=== PATIENT | male | born 1950 | race Caucasian/White ===

== ENCOUNTER 2020-06-19 22:23 | Inpatient (IN) | payer MEDICARE, BC ==
[2020-06-19] MEDS ORDERED: Albuterol Sulfate 2.5 mg/3 ml Neb ONE (22:45)
[2020-06-19] MEDS ORDERED: Cefepime 2 GM VIAL ONE (22:59)
[2020-06-19 23:10] LABS: #Basophils 0.1 10x3/uL (0.0-0.2); #Eosinphils 0.9 10x3/uL (0.0-0.5); #Monocytes 0.8 10x3/uL (0.0-1.1); %Basophils 0.6 % (0.0-2.0); %Eosinophils 11.1 % (0.0-6.0); %Lymphocytes 28.9 % (18.0-47.0); %Monocytes 9.6 % (0.0-10.0); %Neutrophils 49.4 % (40.0-75.0); Hemoglobin 14.4 g/dL (13.5-17.5); Mean Corpuscular HGB CONC 32.5 g/dL (32.0-36.0); Mean Corpuscular Hemoglobin 32.3 pg (27.0-33.0); Mean Corpuscular Volume 99.3 fl (81.2-95.1); Mean Platelet Volume 11.3 fl (7.4-10.4); Platelet Count 186 10x3/uL (150-450); RBC Distribution Width 13.3 % (11.5-14.5); Red Blood Cell (RBC) Count 4.46 10x6/uL (4.32-5.72); White Blood Cell (WBC) Count 8.1 10x3/uL (3.5-10.5)
[2020-06-19 23:26] LABS: ALT (SGPT) 21 U/L (8-55); AST (SGOT) 21 U/L (5-34); Albumin 3.7 g/dL (3.4-4.8); Alkaline Phosphatase 68 U/L (40-110); Anion Gap 14 mmol/L (10-20); BUN (Urea Nitrogen) 15 mg/dL (8.4-25.7); Bilirubin, Total 0.3 mg/dL (0.2-1.2); Calc. Creatinine Clearance 0 mL/min (70-130); Calcium 8.8 mg/dL (7.8-10.44); Carbon Dioxide 24 mmol/L (23-31); Chloride 106 mmol/L (98-107); Globulin 3.1 g/dL (2.4-3.5); Glucose 119 mg/dL (83-110); Potassium 3.6 mmol/L (3.5-5.1); Protein, Total 6.8 g/dL (5.8-8.1); Sodium 140 mmol/L (136-145)
[2020-06-19] MEDS ORDERED: Magnesium 2 GM/50 ML 2 GM in Premix Bag 1 BAG IVPB SCH (23:45)
[2020-06-19] MEDS ORDERED: Senokot S 8.6-50 MG TAB PO PRN (23:57)
[2020-06-19] MEDS ORDERED: Acetaminophen 325 MG TAB PO PRN (23:57)
[2020-06-19] MEDS ORDERED: Dextrose 5% in Water 1,000 ML IV PRN (23:57)
[2020-06-19] MEDS ORDERED: Guaifenesin DM 100-10/5 ML UDCUP PO PRN (23:57)
[2020-06-19] MEDS ORDERED: Calcium Carbonate 500 MG ChewTAB PO PRN (23:57)
[2020-06-19] MEDS ORDERED: Dextrose 50% Abboject 50 ML SYRINGE SLOW IVP PRN (23:57)
[2020-06-19] MEDS ORDERED: Ondansetron PF 4 MG/2 ML Vial IVP PRN (23:57)
[2020-06-20] MEDS ORDERED: Sodium Chloride 0.9% 500 ML IV SCH ×2 (00:15→06:00)
[2020-06-20 00:52] LABS: SARS-CoV-2 NAA Rapid Test Not Detected (NotDetected)
[2020-06-20 01:48] LABS: Lactic Acid 3.4 mmol/L (0.5-2.2)
[2020-06-20 02:22] VITALS: BMI 40.9
[2020-06-20] MEDS: methylPREDNISolone Sod Succ 40 MG VIAL IVP SCH ×4 (02:42→20:06)
[2020-06-20] MEDS: HumaLOG 300 UNITS/3 ML VIAL SC PRN ×3 (02:48→21:42)
[2020-06-20 03:49] LABS: Bilirubin Neg (Negative); Blood, Urine Negative (Negative); Clarity Slightly Cloudy (Clear); Glucose, Urine (Dipstick) 50 mg/dL (Negative); Ketone, Urine 5 mg/dL (Negative); Leukocyte Negative (Negative); Nitrite Negative (Negative); Protein, Urine (Dipstick) 15 mg/dl (Neg-Trace); Specific Gravity, Urine 1.025 (1.002-1.036); Urobilinogen Normal mg/dL (Less than 2)
[2020-06-20 04:01] LABS: Bacteria/HPF Rare-Few HPF (None Seen); RBC/HPF 0-3 HPF (0-3); Squamous Epithelial 0-3 HPF (0-3); Urine Culture Reflex No No; WBC/HPF 0-3 HPF (0-3)
[2020-06-20 05:29] LABS: Lactic Acid 4.4 mmol/L (0.5-2.2)
[2020-06-20 05:34] LABS: Anion Gap 17 mmol/L (10-20); BUN (Urea Nitrogen) 15 mg/dL (8.4-25.7); Calc. Creatinine Clearance 118 mL/min (70-130); Calcium 8.3 mg/dL (7.8-10.44); Carbon Dioxide 19 mmol/L (23-31); Chloride 109 mmol/L (98-107); Glucose 170 mg/dL (83-110); Potassium 3.7 mmol/L (3.5-5.1); Sodium 141 mmol/L (136-145)
[2020-06-20] MEDS ORDERED: Mometasone 200 MCG/Formoterol 5 MCG 120 PUFF INHALER INH SCH (06:30)
[2020-06-20 08:05] LABS: Lactic Acid 4.1 mmol/L (0.5-2.2)
[2020-06-20] MEDS ORDERED: Sodium Chloride 0.9% 1,000 ML IV SCH (08:30)
[2020-06-20] MEDS: Enoxaparin Sodium 40 MG/0.4 ML SYRINGE SC SCH (08:33)
[2020-06-20] MEDS: guaiFENesin ER 600 MG TAB PO SCH ×2 (08:33→20:06)
[2020-06-20] MEDS: Losartan Potassium 50 MG TAB PO SCH (08:33)
[2020-06-20] MEDS: Calcium Carbonate 600 MG + Vit D TAB PO SCH ×2 (08:34→16:17)
[2020-06-20] MEDS: Acetylcysteine 20% 200 MG/ML 30 ML VIAL PO SCH ×2 (08:34→20:10)
[2020-06-20] MEDS ORDERED: Escitalopram Oxalate 10 mg Tablet PO SCH ×2 (09:00)
[2020-06-20] MEDS: Escitalopram Oxalate 10 mg Tablet PO SCH (09:08)
[2020-06-20 10:59] LABS: Anion Gap 13 mmol/L (10-20); BUN (Urea Nitrogen) 13 mg/dL (8.4-25.7); Calc. Creatinine Clearance 132 mL/min (70-130); Calcium 7.9 mg/dL (7.8-10.44); Carbon Dioxide 20 mmol/L (23-31); Chloride 111 mmol/L (98-107); Glucose 167 mg/dL (83-110); Potassium 4.1 mmol/L (3.5-5.1); Sodium 140 mmol/L (136-145)
[2020-06-20 11:03] LABS: Lactic Acid 4.1 mmol/L (0.5-2.2)
[2020-06-20 11:17] LABS: Hemoglobin A1c 5.5 % (4.0-6.0)
[2020-06-20] MEDS ORDERED: Mometasone/Formoterol 200/5 60 PUFF INH SCH (11:30)
[2020-06-20] MEDS ORDERED: Dextrose 5 %-0.45 % NaCl 1,000 ML IV SCH (14:00)
[2020-06-20] MEDS: Mometasone/Formoterol 200/5 60 PUFF INH SCH (16:17)
[2020-06-21] MEDS: methylPREDNISolone Sod Succ 40 MG VIAL IVP SCH ×4 (03:10→22:39)
[2020-06-21 06:36] LABS: Lactic Acid 3.1 mmol/L (0.5-2.2)
[2020-06-21] MEDS: HumaLOG 300 UNITS/3 ML VIAL SC PRN ×2 (07:06→12:56)
[2020-06-21] MEDS: Mometasone/Formoterol 200/5 60 PUFF INH SCH ×2 (07:27→19:42)
[2020-06-21] MEDS ORDERED: Sodium Chloride 0.9% 500 ML IV SCH (07:45)
[2020-06-21] MEDS: guaiFENesin ER 600 MG TAB PO SCH ×2 (08:18→22:39)
[2020-06-21] MEDS: Calcium Carbonate 600 MG + Vit D TAB PO SCH ×2 (08:18→16:39)
[2020-06-21] MEDS: Losartan Potassium 50 MG TAB PO SCH (08:18)
[2020-06-21] MEDS: Enoxaparin Sodium 40 MG/0.4 ML SYRINGE SC SCH (08:18)
[2020-06-21] MEDS: Escitalopram Oxalate 10 mg Tablet PO SCH (08:18)
[2020-06-21] MEDS: Acetylcysteine 20% 200 MG/ML 30 ML VIAL PO SCH ×2 (08:22→22:39)
[2020-06-21 20:03] LABS: Lactic Acid 3.7 mmol/L (0.5-2.2)
[2020-06-21 22:40] LABS: Lactic Acid 2.6 mmol/L (0.5-2.2)
[2020-06-22] MEDS: methylPREDNISolone Sod Succ 40 MG VIAL IVP SCH ×4 (04:25→21:00)
[2020-06-22 04:39] LABS: Lactic Acid 2.6 mmol/L (0.5-2.2)
[2020-06-22 07:17] LABS: Lactic Acid 2.1 mmol/L (0.5-2.2)
[2020-06-22] MEDS: Calcium Carbonate 600 MG + Vit D TAB PO SCH ×2 (08:47→16:21)
[2020-06-22] MEDS: Acetylcysteine 20% 200 MG/ML 30 ML VIAL PO SCH ×2 (08:47→21:05)
[2020-06-22] MEDS: Losartan Potassium 50 MG TAB PO SCH (08:48)
[2020-06-22] MEDS: guaiFENesin ER 600 MG TAB PO SCH ×2 (08:48→20:22)
[2020-06-22] MEDS: Escitalopram Oxalate 10 mg Tablet PO SCH (08:48)
[2020-06-22] MEDS: Enoxaparin Sodium 40 MG/0.4 ML SYRINGE SC SCH (08:48)
[2020-06-22] MEDS: Mometasone/Formoterol 200/5 60 PUFF INH SCH ×2 (09:43→20:22)
[2020-06-22 11:15] LABS: Lactic Acid 3.5 mmol/L (0.5-2.2)
[2020-06-22 14:31] LABS: Lactic Acid 3.5 mmol/L (0.5-2.2)
[2020-06-22 15:07] LABS: #Monocytes 0.4 10x3/uL (0.0-1.1); #Neutrophils 14.6 10x3/uL (1.5-8.4); %Basophils 0.1 % (0.0-2.0); %Lymphocytes 4.9 % (18.0-47.0); %Monocytes 2.7 % (0.0-10.0); Hemoglobin 12.9 g/dL (13.5-17.5); Mean Corpuscular HGB CONC 32.9 g/dL (32.0-36.0); Mean Corpuscular Hemoglobin 32.3 pg (27.0-33.0); Mean Corpuscular Volume 98.2 fl (81.2-95.1); Mean Platelet Volume 11.3 fl (7.4-10.4); Platelet Count 179 10x3/uL (150-450); RBC Distribution Width 13.5 % (11.5-14.5); Red Blood Cell (RBC) Count 3.99 10x6/uL (4.32-5.72); White Blood Cell (WBC) Count 16.1 10x3/uL (3.5-10.5)
[2020-06-22 15:19] LABS: Anion Gap 13 mmol/L (10-20); BUN (Urea Nitrogen) 17 mg/dL (8.4-25.7); Calc. Creatinine Clearance 126 mL/min (70-130); Calcium 8.7 mg/dL (7.8-10.44); Carbon Dioxide 26 mmol/L (23-31); Chloride 106 mmol/L (98-107); Glucose 170 mg/dL (83-110); Potassium 4.1 mmol/L (3.5-5.1); Sodium 141 mmol/L (136-145)
[2020-06-22] MEDS: Sodium Chloride 0.9% 1,000 ML IV SCH (16:21)
[2020-06-22] MEDS: HumaLOG 300 UNITS/3 ML VIAL SC PRN (16:32)
[2020-06-22] MEDS ORDERED: Sodium Chloride 0.9% 500 ML IV SCH (17:45)
[2020-06-23] MEDS: methylPREDNISolone Sod Succ 40 MG VIAL IVP SCH ×3 (04:00→15:36)
[2020-06-23] MEDS: Sodium Chloride 0.9% 1,000 ML IV SCH ×2 (04:15→12:33)
[2020-06-23] MEDS: Mometasone/Formoterol 200/5 60 PUFF INH SCH (07:59)
[2020-06-23] MEDS: Calcium Carbonate 600 MG + Vit D TAB PO SCH (09:36)
[2020-06-23] MEDS: Escitalopram Oxalate 10 mg Tablet PO SCH (09:59)
[2020-06-23] MEDS: guaiFENesin ER 600 MG TAB PO SCH (09:59)
[2020-06-23] MEDS: Enoxaparin Sodium 40 MG/0.4 ML SYRINGE SC SCH (09:59)
[2020-06-23] MEDS: Losartan Potassium 50 MG TAB PO SCH (09:59)
[2020-06-23] MEDS: Acetylcysteine 20% 200 MG/ML 30 ML VIAL PO SCH (09:59)
[2020-06-23 10:29] LABS: Lactic Acid 2.8 mmol/L (0.5-2.2)
[2020-06-23] MEDS: HumaLOG 300 UNITS/3 ML VIAL SC PRN (12:00)
[2020-06-23 12:44] VITALS: BP 128/77; TEMP 97.9
== END 2020-06-23 16:18 | DRG 189 ==
LOC: CSHERS 22:23 → CSHTELE 06-20 02:13
PROVIDERS: ADMIT Student in an Organized Health Care Education/Training Program; ATTEND Internal Medicine
DX: J96.01 Acute respiratory failure with hypoxia (principal); R65.11 Systemic inflammatory response syndrome (SIRS) of non-infectious origin with acute organ dysfunction; J44.1 Chronic obstructive pulmonary disease with (acute) exacerbation; E87.2 Acidosis; F03.91 Unspecified dementia, unspecified severity, with behavioral disturbance; Z68.41 Body mass index [BMI] 40.0-44.9, adult; Z20.822 Contact with and (suspected) exposure to COVID-19; G47.33 Obstructive sleep apnea (adult) (pediatric); I12.9 Hypertensive chronic kidney disease with stage 1 through stage 4 chronic kidney disease, or unspecified chronic kidney disease; N18.2 Chronic kidney disease, stage 2 (mild); R73.9 Hyperglycemia, unspecified; T38.0X5A Adverse effect of glucocorticoids and synthetic analogues, initial encounter; E66.01 Morbid (severe) obesity due to excess calories; Z66 Do not resuscitate; R13.10 Dysphagia, unspecified; Z79.52 Long term (current) use of systemic steroids; Z79.899 Other long term (current) drug therapy
CPT/HCPCS: 0240U; 36415; 36416; 71045; 74177; 80048; 80053; 81001; 83036; 83605; 83880; 84484; 85025; 85379; 87040; 93005; 93306; 94640; 94664; 94760; 96365; 96367; J0132; J0692; J1650; J1815; J1956; J2920; J3370; J3475; J7030; J7042; J7050; J7611; J7620